=== PATIENT | female | born 1975 | race Caucasian/White ===

== ENCOUNTER → 2017-12-30 | Outpatient (CLI) | payer OTHER ==
[~2017-12-30] MED LIST: PRENATAL1 TA1 PO
== END ==
LOC: MC.RAD 10:25
DX: Z12.31 Encounter for screening mammogram for malignant neoplasm of breast (principal)

== ENCOUNTER → 2018-01-05 | Outpatient (CLI) | payer OTHER | LOC: MC.RAD 12:55 | DX: N64.89 Other specified disorders of breast (principal) | CPT/HCPCS: G0279 ==

== ENCOUNTER → 2020-01-04 | Outpatient (CLI) | payer OTHER | LOC: MC.RAD 06:59 | DX: Z12.31 Encounter for screening mammogram for malignant neoplasm of breast (principal); N63.10 Unspecified lump in the right breast, unspecified quadrant ==

== ENCOUNTER → 2020-01-06 | Outpatient (CLI) | payer OTHER | LOC: MC.RAD 12:53 | DX: N60.01 Solitary cyst of right breast (principal) ==

== ENCOUNTER → 2021-02-22 | Outpatient (CLI) | payer OTHER | LOC: MC.RAD 08:35 | DX: Z12.31 Encounter for screening mammogram for malignant neoplasm of breast (principal); N60.01 Solitary cyst of right breast ==

== ENCOUNTER → 2023-05-14 | Outpatient (CLI) | payer OTHER | LOC: MC.RAD 13:45 | DX: Z12.31 Encounter for screening mammogram for malignant neoplasm of breast (principal) ==